=== PATIENT | male | born 1955 | race Caucasian/White ===

== ENCOUNTER 2020-02-26 12:19 | Emergency (ER) | payer BC, SELFPAY ==
--- NOTE | ~2020-02-26 | XR_ITS ---
EXAMINATION: XR chest 2V DATE: 02/26/2020 12:56 INDICATION: 7 months of intermittent cough worsening over the past 2 weeks TECHNIQUE: PA and lateral views of the chest were obtained. COMPARISON: None FINDINGS: Eventration along the right hemidiaphragm. Small pericardial fat pad at the apex of the heart adjacen t mild lingular atelectasis. No other airspace opacities, pulmonary edema, pleural effusion or pneumo thorax. The cardiomediastinal silhouette is normal. Mild thoracic spondylosis. IMPRESSION: 1. No acute cardiopulmonary disease. Reviewed, dictated and finalized at location A.
[2020-02-26 12:36] VITALS: BP 121/85; PULSE 88; RESP 18; TEMP 36.7; O2SAT 97
--- NOTE | 2020-02-26 13:09 | ED.URI ---
HPI - URI/Sore Throat General Chief Complaint: Upper Respiratory Infection Stated Complaint: Cough/wheezing Time Seen by Provider: 02/26/20 13:09 Source: patient Mode of arrival: ambulatory Limitations: no limitations History of Present Illness HPI Narrative: Krishna Damon is a 64 yo male with a PMH of seasonal allergies who comes to express care with recurrent cough and difficulty breathing; historically had cough and congestion in August treated for flu, repeated medication and antibiotics in October Related Data Home Medications Medication Instructions Recorded Confirmed Ventolin HFA 02/26/20 cetirizine [Zyrtec] mg 02/26/20 Allergies Allergy/AdvReac Type Severity Reaction Status Date / Time No Known Allergies Allergy Verified 02/26/20 12:50 Review of Systems Review of Systems: Narrative: CONSTITUTIONAL: Denies fever, chills, sweats. EYES: Denies visual changes, redness, discharge. ENT: Denies rhinorrhea, congestion, sore throat, otalgia. CARDIOVASCULAR: Denies chest pain, palpitations, edema. RESPIRATORY: Denies dyspnea, has wheezing,has cough GASTROINTESTINAL: Denies abdominal pain, nausea, vomiting, diarrhea. GENITOURINARY: Denies dysuria, hematuria, abnormal discharge SKIN: Denies rash or itching. NEUROLOGIC: Denies numbness, or focal weakness. PSYCHIATRIC: Denies anxiety or depression. [facility] Past Medical History Medical History Pneumonia Family History Family History Other No acute medical problems Social History Social History Smoking status: Never smoker Comments At time of signature, I agree with nursing past medical, surgical, social and family history. There is no relevant family history pertinent to the presenting complaint. Exam Narrative: Exam Narrative: GENERAL: This is a well-nourished, well-developed patient, in mild distress. HEAD: normocephalic, atraumatic. EYES: Sclera clear/white. Vision is grossly intact. EARS: External ears normal, auditory canals clear and without drainage, TMs normal without perforation. Hearing grossly intact. NOSE: External nose normal without nasal discharge, nares without redness, no rhinorrhea. THROAT: Mucous membranes moist, NECK: Neck supple, CARDIOVASCULAR: Regular rate and rhythm without murmurs, gallops, or rubs. RESPIRATORY: Diminished to auscultation. Breath sounds equal bilaterally. Diffuse fine wheezes, no rales, or rhonchi. GASTROINTESTINAL: Abdomen soft, SKIN: warm, intact with no suspicious lesions or rash, good texture and turgor. NEURO: awake, alert, and oriented to person, place and time. There were no obvious focal neurologic abnormalities. Steady gait EXTREMITIES: Normal range of motion. BACK: Nontender without deformity Course Course Emergency Course: [id number]:no acute cardiovascular process [facility], prednisone, doxycycline-recommendedcovid testing which patient declined Follow-up with PCP when returning home Vital Signs Vital signs: Vital Signs Temperature 98.0 F 02/26/20 12:36 Pulse Rate 88 02/26/20 12:36 Respiratory Rate 18 02/26/20 12:36 Blood Pressure 121/85 02/26/20 12:36 Pulse Oximetry 97 02/26/20 12:36 Temperature 98.0 F 02/26/20 12:36 Pulse Rate 88 02/26/20 12:36 Respiratory Rate 18 02/26/20 12:36 Blood Pressure 121/85 02/26/20 12:36 Pulse Oximetry 97 02/26/20 12:36 MDM - URI/Sore Throat Differential Diagnosis Differential diagnosis: Likely viral infection, bronchitis, pharyngitis and other (Empiric pneumonia versus asthma) Discharge Plan Discharge Clinical Impression: Cough Asthma Qualifiers: Asthma severity: moderate Asthma persistence: persistent Asthma complication type: uncomplicated Qualified Code(s): J45.40 - Moderate persistent asthma, uncomplicated Pat
== END 2020-02-26 13:43 | disposition home or self-care (01) ==
PROVIDERS: Emergency Provider Nurse Practitioner
DX: J45.40 Moderate persistent asthma, uncomplicated (principal)
CPT/HCPCS: 71046; 99213; G0463